=== PATIENT | male | born 1955 | race Caucasian/White ===

== ENCOUNTER → 2016-12-16 | Outpatient (CLI) | payer MEDICAID ==
[~2016-12-16] MED LIST: ASPI81 PO; ATOR40TA28 PO; BUME1TAB30 PO; CARV6 PO; CEPH500 PO; LIDOCAINE HCL 4% 50 ML SOLUTION TP ONE; LIDOCAINE HCL/PF 2% 5 ML VIAL INJ ONE; LISI-661 PO; POTA-79 PO
[2016-12-16 14:17] VITALS: BP 101/62
== END | disposition home or self-care (01) ==
LOC: HBOWC 12:16
PROVIDERS: ATTEND Emergency Medicine
DX: T81.31XA Disruption of external operation (surgical) wound, not elsewhere classified, initial encounter (principal); L97.111 Non-pressure chronic ulcer of right thigh limited to breakdown of skin; L97.811 Non-pressure chronic ulcer of other part of right lower leg limited to breakdown of skin; I25.2 Old myocardial infarction; I25.810 Atherosclerosis of coronary artery bypass graft(s) without angina pectoris; Z95.1 Presence of aortocoronary bypass graft; I48.91 Unspecified atrial fibrillation; I50.9 Heart failure, unspecified; I87.2 Venous insufficiency (chronic) (peripheral); Y83.8 Other surgical procedures as the cause of abnormal reaction of the patient, or of later complication, without mention of misadventure at the time of the procedure
CPT/HCPCS: 11042; 87070; 87077; 87186; 87205; G0463; J3490